=== PATIENT | female | born 1950 | race African-American/Black ===

== ENCOUNTER 2022-09-04 15:32 | Inpatient (IN) | payer OTHER, MEDICARE ==
[~2022-09-04] VITALS: Ht 172.7 cm; Wt 91.0 kg
[2022-09-04] MEDS ORDERED: VANCOMYCIN 1GM/WATER(PEG/NADA) 200 ML IV ONE (16:00)
[2022-09-04] MEDS ORDERED: CloNIDine HCL 0.2 MG TABLET PO ONE (16:00)
[2022-09-04 16:16] LABS: BASOPHILS % (AUTO) 0.6 % (0.0-2.0); HEMATOCRIT 42.1 % (36-46); HEMOGLOBIN 13.8 g/dL (12.0-16.0); LYMPHOCYTES # (AUTO) 2.1 K/uL (1.0-4.8); LYMPHOCYTES % (AUTO) 25.2 % (22.0-44.0); MEAN CORPUSCULAR HEMOGLOBIN 26.6 pg (26.0-34.0); MEAN CORPUSCULAR HGB CONC 32.8 G/dL (31.0-37.0); MEAN CORPUSCULAR VOLUME 81 fL (80-100); MONOCYTES # (AUTO) 0.6 K/uL (0.1-1.0); MONOCYTES % (AUTO) 6.9 % (2.0-9.0); NEUTROPHILS # (AUTO) 5.5 K/uL (1.8-7.7); NEUTROPHILS % (AUTO) 66.3 % (40.0-70.0); PLATELET COUNT (AUTO) 219 K/uL (150-450); RED BLOOD CELL COUNT(AUTO) 5.18 MIL/uL (4.00-5.20); RED CELL DISTRIBUTION WIDTH 13.9 % (11.5-14.5)
[2022-09-04 16:26] LABS: ANION GAP 8 mmol/L (8-16); CARBON DIOXIDE 33 mmol/L (22-29); CHLORIDE 100 mmol/L (98-107); CREATININE 0.84 mg/dL (0.60-1.30); GLOMERULAR FILTR. RATE CALC > 60 mL/min (>60); GLUCOSE,RANDOM 260 mg/dL (70-110); POTASSIUM 3.8 mmol/L (3.5-5.1); SODIUM SERUM 141 mmol/L (136-145); UREA NITROGEN, BLOOD 15 mg/dL (7-18)
[2022-09-04 16:31] LABS: ALBUMIN 3.8 g/dL (3.4-5.0); ALKALINE PHOSPHATASE 104 U/L (46-116); ASPARTATE AMINOTRANSFERASE 15 U/L (15-37); BILIRUBIN,TOTAL 0.9 mg/dL (0.1-1.0); TOTAL PROTEIN, SERUM 8.5 g/dL (6.4-8.2)
[2022-09-04 16:40] LABS: ALANINE AMINOTRANSFERASE 20 U/L (12-78)
[2022-09-04] MEDS ORDERED: MAGNESIUM HYDROXIDE SUSPENSION 30 ML UDCUP PO PRN (17:00)
[2022-09-04] MEDS ORDERED: ONDANSETRON HCL 4 MG/2 ML VIAL IVP PRN (17:00)
[2022-09-04] MEDS ORDERED: DEXTROSE 50%-WATER 25 GM/50 ML SYRINGE IVP PRN (17:00)
[2022-09-04] MEDS: CefTRIAXone 1 GM/DEXTROSE 50 ML IV SCH (18:42)
[2022-09-04 20:14] LABS: APPEARANCE,URINE CLEAR (CLEAR); BILIRUBIN,URINE NEGATIVE (NEGATIVE); GLUCOSE, URINE (UA) NEGATIVE (NEGATIVE); KETONES,URINE NEGATIVE (NEGATIVE); LEUKOCYTE ESTERASE ,URINE LARGE (NEGATIVE); NITRATE,URINE NEGATIVE (NEGATIVE); OCCULT BLOOD,URINE NEGATIVE (NEGATIVE); PROTEIN,URINE TRACE mg/dL (NEGATIVE); SPECIFIC GRAVITIY, URINE 1.018 (1.003-1.030); UROBILINOGEN,URINE <=1.0 mg/dL (<=1.0)
[2022-09-04 20:21] LABS: BACTERIA,URINE Few /HPF (None Seen); RBC,URINE 0-2 /HPF (0-2); SQUAMOUS EPITHELIAL CELL,UR Few /LPF (None Seen)
[2022-09-04 20:50] VITALS: BP 189/116
[2022-09-04] MEDS: CloNIDine HCL 0.1 MG TABLET PO PRN (21:27)
[2022-09-04] MEDS: LOSARTAN POTASSIUM 25 MG TABLET PO SCH (21:28)
[2022-09-04] MEDS: ATORVASTATIN CALCIUM 20 MG TABLET PO SCH (21:28)
[2022-09-04] MEDS: HEPARIN SODIUM,PORCINE 5,000 UNITS/ML VIAL SQ SCH (23:16)
[2022-09-04 23:17] VITALS: BP 153/99
[2022-09-04] MEDS: ACETAMINOPHEN 325 MG TABLET PO PRN (23:38)
[2022-09-05 04:55] VITALS: BP 151/79
[2022-09-05] MEDS: INSULIN LISPRO 100 UNITS/ML SQ PRN ×4 (05:46→20:29)
[2022-09-05 07:01] LABS: GLUCOMETER DEV NAME(LOC) 6N.2B; GLUCOSE,POINT OF CARE 285 MG/DL (70-110)
[2022-09-05 07:17] LABS: HEMOGLOBIN A1C 12.2 % (3.8-5.6)
[2022-09-05 07:29] VITALS: BP 177/86
[2022-09-05 07:34] LABS: ANION GAP 6 mmol/L (8-16); CALCIUM, TOTAL 9.4 mg/dL (8.8-10.5); CARBON DIOXIDE 31 mmol/L (22-29); CHLORIDE 101 mmol/L (98-107); CREATININE 0.78 mg/dL (0.60-1.30); GLOMERULAR FILTR. RATE CALC > 60 mL/min (>60); GLUCOSE,RANDOM 271 mg/dL (70-110); POTASSIUM 3.3 mmol/L (3.5-5.1); SODIUM SERUM 138 mmol/L (136-145); UREA NITROGEN, BLOOD 16 mg/dL (7-18)
[2022-09-05] MEDS ORDERED: SODIUM CHLORIDE 0.9% 500 ML IV ONE (08:23)
[2022-09-05] MEDS: LOSARTAN POTASSIUM 25 MG TABLET PO SCH ×2 (08:26→20:20)
[2022-09-05] MEDS: ACETAMINOPHEN 325 MG TABLET PO PRN (08:26)
[2022-09-05] MEDS: ASPIRIN 81 MG CHEWABLE TABLET PO SCH (08:26)
[2022-09-05] MEDS: HEPARIN SODIUM,PORCINE 5,000 UNITS/ML VIAL SQ SCH ×3 (08:27→23:09)
[2022-09-05] MEDS: FAMOTIDINE 20 MG TABLET PO SCH (08:27)
[2022-09-05] MEDS: VANCOMYCIN 1GM/WATER(PEG/NADA) 200 ML IV SCH ×2 (08:33→20:19)
[2022-09-05] MEDS ORDERED: AmLODIPine BESYLATE 5 MG TABLET PO SCH (09:00)
[2022-09-05] MEDS ORDERED: POTASSIUM CHL 10 MEQ/WATER 50 ML IV PRN (10:15)
[2022-09-05] MEDS ORDERED: POTASSIUM CHLORIDE 20 MEQ ER TABLET PO PRN (10:15)
[2022-09-05 13:00] VITALS: BP 164/105
[2022-09-05] MEDS: CloNIDine HCL 0.1 MG TABLET PO PRN (13:13)
[2022-09-05 13:41] LABS: GLUCOMETER DEV NAME(LOC) 6N.2B; GLUCOSE,POINT OF CARE 244 MG/DL (70-110)
[2022-09-05 14:30] VITALS: BP 147/90
[2022-09-05 15:31] VITALS: BP 128/80
[2022-09-05] MEDS: CefTRIAXone 1 GM/DEXTROSE 50 ML IV SCH (17:50)
[2022-09-05] MEDS: MetFORMIN HCL 500 MG TABLET PO SCH (18:30)
[2022-09-05 19:38] VITALS: BP 148/84
[2022-09-05 20:07] LABS: GLUCOMETER DEV NAME(LOC) 6N.1; GLUCOSE,POINT OF CARE 326 MG/DL (70-110)
[2022-09-05] MEDS: ATORVASTATIN CALCIUM 20 MG TABLET PO SCH (20:21)
[2022-09-06 00:16] LABS: GLUCOMETER DEV NAME(LOC) 6N.1; GLUCOSE,POINT OF CARE 305 MG/DL (70-110)
[2022-09-06 04:27] VITALS: BP 163/99
[2022-09-06] MEDS: CloNIDine HCL 0.1 MG TABLET PO PRN ×2 (04:35→15:45)
[2022-09-06] MEDS: INSULIN LISPRO 100 UNITS/ML SQ PRN ×4 (05:43→21:15)
[2022-09-06] MEDS: VANCOMYCIN 1GM/WATER(PEG/NADA) 200 ML IV SCH ×2 (07:41→19:23)
[2022-09-06] MEDS: ASPIRIN 81 MG CHEWABLE TABLET PO SCH (07:42)
[2022-09-06] MEDS: LOSARTAN POTASSIUM 25 MG TABLET PO SCH (07:42)
[2022-09-06] MEDS: MetFORMIN HCL 500 MG TABLET PO SCH (07:42)
[2022-09-06] MEDS: HEPARIN SODIUM,PORCINE 5,000 UNITS/ML VIAL SQ SCH ×3 (07:42→23:30)
[2022-09-06] MEDS: FAMOTIDINE 20 MG TABLET PO SCH (07:43)
[2022-09-06 08:01] LABS: ANION GAP 3 mmol/L (8-16); CALCIUM, TOTAL 9.6 mg/dL (8.8-10.5); CARBON DIOXIDE 31 mmol/L (22-29); CHLORIDE 104 mmol/L (98-107); CREATININE 0.88 mg/dL (0.60-1.30); GLOMERULAR FILTR. RATE CALC > 60 mL/min (>60); GLUCOSE,RANDOM 193 mg/dL (70-110); POTASSIUM 4.5 mmol/L (3.5-5.1); SODIUM SERUM 138 mmol/L (136-145); VANCOMYCIN,RANDOM 13.9 mcg/mL (25.0-50.0)
[2022-09-06 08:06] VITALS: BP 182/104
[2022-09-06] MEDS ORDERED: AmLODIPine BESYLATE 5 MG TABLET PO SCH (09:00)
[2022-09-06 09:12] LABS: UREA NITROGEN, BLOOD 17 mg/dL (7-18)
[2022-09-06] MEDS: CloNIDine HCL 0.1 MG TABLET PO SCH ×2 (09:15→21:11)
[2022-09-06 11:27] LABS: GLUCOMETER DEV NAME(LOC) 6N.2B; GLUCOSE,POINT OF CARE 269 MG/DL (70-110)
[2022-09-06 14:41] LABS: GLUCOMETER DEV NAME(LOC) 6N.1; GLUCOSE,POINT OF CARE 189 MG/DL (70-110)
[2022-09-06 15:45] VITALS: BP 177/94
[2022-09-06] MEDS: CefTRIAXone 1 GM/DEXTROSE 50 ML IV SCH (17:13)
[2022-09-06 18:12] LABS: GLUCOMETER DEV NAME(LOC) 6N.2B; GLUCOSE,POINT OF CARE 196 MG/DL (70-110)
[2022-09-06] MEDS: MetFORMIN HCL 850 MG TABLET PO SCH (18:22)
[2022-09-06 19:15] VITALS: BP 140/79
[2022-09-06] MEDS: LOSARTAN POTASSIUM 50 MG TABLET PO SCH (21:11)
[2022-09-06] MEDS: ATORVASTATIN CALCIUM 20 MG TABLET PO SCH (21:11)
[2022-09-06 23:21] LABS: GLUCOMETER DEV NAME(LOC) 6N.2B; GLUCOSE,POINT OF CARE 169 MG/DL (70-110)
[2022-09-07 04:40] VITALS: BP 146/97
[2022-09-07] MEDS: INSULIN LISPRO 100 UNITS/ML SQ PRN (05:41)
[2022-09-07 07:27] VITALS: BP 140/92
[2022-09-07 07:51] LABS: ANION GAP 5 mmol/L (8-16); CALCIUM, TOTAL 9.2 mg/dL (8.8-10.5); CARBON DIOXIDE 30 mmol/L (22-29); CHLORIDE 104 mmol/L (98-107); CREATININE 0.79 mg/dL (0.60-1.30); GLOMERULAR FILTR. RATE CALC > 60 mL/min (>60); GLUCOSE,RANDOM 183 mg/dL (70-110); POTASSIUM 3.5 mmol/L (3.5-5.1); SODIUM SERUM 139 mmol/L (136-145); UREA NITROGEN, BLOOD 11 mg/dL (7-18)
[2022-09-07] MEDS: VANCOMYCIN 1GM/WATER(PEG/NADA) 200 ML IV SCH (08:00)
[2022-09-07] MEDS: LOSARTAN POTASSIUM 50 MG TABLET PO SCH (08:06)
[2022-09-07] MEDS: MetFORMIN HCL 850 MG TABLET PO SCH (08:06)
[2022-09-07] MEDS: ASPIRIN 81 MG CHEWABLE TABLET PO SCH (08:06)
[2022-09-07] MEDS ORDERED: AMLO-258 PO (08:07)
[2022-09-07] MEDS: HEPARIN SODIUM,PORCINE 5,000 UNITS/ML VIAL SQ SCH (08:07)
[2022-09-07] MEDS: FAMOTIDINE 20 MG TABLET PO SCH (08:07)
[2022-09-07] MEDS: CloNIDine HCL 0.1 MG TABLET PO SCH (08:07)
[2022-09-07] MEDS ORDERED: LOSA-382 PO (08:08)
[2022-09-07] MEDS ORDERED: CLON0.1T2 PO (08:08)
[2022-09-07] MEDS ORDERED: ASPI-1450 PO (08:09)
[2022-09-07] MEDS ORDERED: METF-1185 PO (08:09)
[2022-09-07] MEDS ORDERED: BACTDSB PO (08:13)
[2022-09-07] MEDS ORDERED: AmLODIPine BESYLATE 10 MG TABLET PO SCH (09:00)
[2022-09-07 09:26] LABS: GLUCOMETER DEV NAME(LOC) 6N.1; GLUCOSE,POINT OF CARE 186 MG/DL (70-110)
== END 2022-09-07 11:48 | disposition home or self-care (01) | DRG 605 ==
LOC: EMS 15:38 → 6S 20:16
PROVIDERS: ADMIT Internal Medicine; ATTEND Internal Medicine
DX: S81.802A Unspecified open wound, left lower leg, initial encounter (principal); L03.116 Cellulitis of left lower limb; E11.51 Type 2 diabetes mellitus with diabetic peripheral angiopathy without gangrene; I16.0 Hypertensive urgency; I10 Essential (primary) hypertension; E87.6 Hypokalemia; X58.XXXA Exposure to other specified factors, initial encounter; E66.9 Obesity, unspecified; E11.65 Type 2 diabetes mellitus with hyperglycemia; Z83.3 Family history of diabetes mellitus; Z82.49 Family history of ischemic heart disease and other diseases of the circulatory system; Y93.89 Activity, other specified; Y92.89 Other specified places as the place of occurrence of the external cause; Y99.8 Other external cause status; Z68.30 Body mass index [BMI] 30.0-30.9, adult; Z79.4 Long term (current) use of insulin
CPT/HCPCS: 71045; 80048; 80053; 80202; 81001; 82962; 83036; 84132; 85025; 87070; 87186; 87205; 93005; 93925; 99285; J0696; J1644; J7040; Q9967; 36415-L1; 36415-TC